=== PATIENT | female | born 1965 | race Caucasian/White ===

== ENCOUNTER 2016-10-16 10:45 | Observation (INO) | payer OTHER ==
[~2016-10-16] VITALS: Ht 175.3 cm; Wt 75.0 kg
[2016-10-16] MEDS: NITROGLYCERIN 0.4 MG SL 25 TABS/BTL SL SCH ×2 (01:43→11:15)
[~2016-10-16 10:45] MED LIST: CEPH500C3 PO; Z.0.NO CURRENT MEDS
[2016-10-16 10:48] VITALS: BP 217/103; PULSE 94; RESP 16; TEMP 97.9; O2SAT 98
[2016-10-16] MEDS ORDERED: SODIUM CHLORIDE 0.9% FLUSH 10 ML FLUSH IVF PRN (11:15)
[2016-10-16 11:35] VITALS: BP 166/94; PULSE 64; RESP 16; O2SAT 99
[2016-10-16 11:36] LABS: AUTOMATED NEUTROPHIL # 3.1 TH/MM3 (1.8-7.7); BASOPHIL # 0.1 TH/MM3 (0-0.2); EOSINOPHIL # 0.1 TH/MM3 (0-0.4); EOSINOPHIL % 1.5 % (0.0-4.0); HEMATOCRIT 36.8 % (35.0-46.0); HEMO FLAGS DIFF FINAL; LYMPH % 23.8 % (9.0-44.0); LYMPHOCYTE # 1.2 TH/MM3 (1.0-4.8); MEAN CELL VOLUME 94.6 FL (80.0-100.0); MEAN CORPUSCULAR HEMOGLOBIN 31.1 PG (27.0-34.0); MEAN CORPUSCULAR HGB CONC 32.9 % (32.0-36.0); MONO % 12.3 % (0.0-8.0); NEUT % 61.4 % (16.0-70.0); PLATELET COUNT 194 TH/MM3 (150-450); RED CELL DISTRIBUTION WIDTH 12.6 % (11.6-17.2); WHITE BLOOD COUNT 5.1 TH/MM3 (4.0-11.0)
[2016-10-16 11:56] LABS: ANION GAP 6 MEQ/L (5-15); BICARBONATE 26.9 MEQ/L (21.0-32.0); BLOOD UREA NITROGEN 14 MG/DL (7-18); CHLORIDE 102 MEQ/L (98-107); GLOMERULAR FILTRATION RATE 60 ML/MIN (>89); POTASSIUM 4.2 MEQ/L (3.5-5.1); SODIUM (NA) 135 MEQ/L (136-145)
[2016-10-16 12:00] LABS: APTT (PATIENT) 28.3 SEC (24.3-30.1); PROTHROMBIN TIME - PATIENT 11.1 SEC (9.8-11.6)
--- NOTE | 2016-10-16 12:00 | RADRPT ---
EXAM DATE/TIME: 10/16/2016 11:30 [place] COMPARISON: No previous studies available for comparison. INDICATIONS : Chest pain/tightness MEDICAL HISTORY : None. SURGICAL HISTORY : None. ENCOUNTER: Initial ACUITY: 1 day PAIN SCORE: 5/10 LOCATION: Bilateral chest FINDINGS: A single view of the chest demonstrates the lungs to be symmetrically aerated without evidence of mas s, infiltrate or effusion. The cardiomediastinal contours are unremarkable. Osseous structures are intact. CONCLUSION: No acute disease. Nickolas Askew MD FACR on October 16, 2016 at 11:58 Board Certified Radiologist. This report was verified electronically.
[2016-10-16 12:04] LABS: CREATINE KINASE 76 U/L (26-192)
--- NOTE | 2016-10-16 12:25 | PD ---
HPI Chief Complaint: Chest Pain Time Seen by Provider: 10:55 Travel History International Travel<30 days: No Contact w/Intl Traveler<30days: No Traveled to known affect area: No History of Present Illness HPI The patient's 51 years old. She arrives to the ER with a complaint of left upper extremity numbness and tingling. She also describes a tight sensation chest associated with dyspnea. Additionally she complains of left lower extremity numbness and tingling. She notes taking one aspirin hour ago. It has not made a difference. Onset at rest. She's had no cough or fever. She reports a racing heart sensation earlier today which has since resolved. She drinks alcohol occasionally. She does not smoke tobacco. She denies any past medical history. She takes no medication. No similar prior event has occurred. She reports some anxiety. She was planning going to the beach today. She contends that "just doesn't feel right all over." PFSH Past Medical History Blood Disorders: No Cancer: No Cardiovascular Problems: No Diminished Hearing: No Endocrine: No Genitourinary: No Musculoskeletal: Yes Neurologic: No Psychiatric: No Reproductive: No Respiratory: No Influenza Vaccination: Yes ?: Not Social History Alcohol Use: No Tobacco Use: No Substance Use: No Allergies-Medications (Allergen,Severity, Reaction): Coded Allergies: No Known Allergies (Verified , 06/14/10) Reported Meds & Prescriptions Reported Meds & Active Scripts Active Hydrochlorothiazide 25 Mg Tab 25 Mg PO HS Keflex (Cephalexin Monohydrate) 500 Mg Cap 1 Tab PO BID 5 Days Reported No Current Meds (Miscellaneous Medication) Misc Review of Systems Except as stated in HPI: all other systems reviewed are Neg Physical Exam Narrative GENERAL: 51-year-old female pleasant well-nourished well-developed SKIN: Focused skin assessment warm/dry. HEAD: Atraumatic. Normocephalic. EYES: Pupils equal and round. No scleral icterus. No injection or drainage. ENT: No nasal bleeding or discharge. Mucous membranes pink and moist. NECK: Trachea midline. No JVD. CARDIOVASCULAR: Regular rate and rhythm. No murmur appreciated. RESPIRATORY: No accessory muscle use. Clear to auscultation. Breath sounds equal bilaterally. GASTROINTESTINAL: Abdomen soft, non-tender, nondistended. Hepatic and splenic margins not palpable. MUSCULOSKELETAL: No obvious deformities. No clubbing. No cyanosis. No edema. NEUROLOGICAL: Awake and alert. No obvious cranial nerve deficits. Motor grossly within normal limits. Normal speech. PSYCHIATRIC: Appropriate mood and affect; insight and judgment normal. Data Data Last Documented VS Vital Signs Date Time Temp Pulse Resp B/P Pulse Ox O2 Delivery O2 Flow Rate FiO2 10/16/16 12:14 99 Room Air 10/16/16 11:35 64 16 166/94 10/16/16 10:48 97.9 Vital signs reviewed Orders Electrocardiogram (10/16/16 11:13) Basic Metabolic Panel (Bmp) (10/16/16 11:13) Ckmb (Isoenzyme) Profile (10/16/16 11:13) Complete Blood Count With Diff (10/16/16 11:13) D-Dimer (10/16/16 11:13) Magnesium (Mg) (10/16/16 11:13) Prothrombin Time / Inr (Pt) (10/16/16 11:13) Act Partial Throm Time (Ptt) (10/16/16 11:13) Troponin I (10/16/16 11:13) Chest, Single Ap (10/16/16 11:13) Ecg Monitoring (10/16/16 11:13) Bilateral Bp Monitoring (10/16/16 11:13) Iv Access Insert/Monitor (10/16/16 11:13) Oximetry (10/16/16 11:13) Oxygen Administration (10/16/16 11:13) Sodium Chloride 0.9% Flush (Ns Flush) (10/16/16 11:15) Nitroglycerin Sl (Nitrostat Sl) (10/16/16 11:15) Ed Urine Pregnancytest Poc (10/16/16 11:13) Place In Observation (10/16/16 12:38) Activity Bed Rest With Brp (10/16/16 12:38) Vital Signs (Adult) Q4H (10/16/16 12:38) Cardiac Rhythm .As Directed (10/16/16 12:38) Notify Dr: Other .PRN (10/16/16 12:38) Notify Dr. Parameters (10/16/16 12:38) Resp Oxygen Nasal Cannula (10/16/16 ) Ckmb (Isoenzyme) Profile (10/16/16 12:38) Ckmb (Isoenzyme) Profile (10/16/16 15:38) Troponin I (10/16/16 12:38) Troponin I (10/16/16 15:38) Electrocardiogram (10/16/16 12:38) Electrocardiogram (10/16/16 15:38) ^ Obtain (10/16/16 12:38) Morphine Inj (Morphine Inj) (10/16/16 12:45) Ondansetron Inj (Zofran Inj) (10/16/16 12:45) Nitroglycerin Sl (Nitrostat Sl) (10/16/16 12:45) Aspirin (Aspirin) (10/17/16 09:00) Temazepam (Restoril) (10/16/16 12:45) Alprazolam (Xanax) (10/16/16 12:45) Filament Cutter / Telemetry DONNA.Q8H (10/16/16 12:38) Admit Order (Ed Use Only) (10/16/16 13:03) Labs Laboratory Tests Test 10/16/16 11:20 White Blood Count 5.1 TH/MM3 Red Blood Count 3.90 MIL/MM3 Hemoglobin 12.1 GM/DL Hematocrit 36.8 % Mean Corpuscular Volume 94.6 FL Mean Corpuscular Hemoglobin 31.1 PG Mean Corpuscular Hemoglobin 32.9 % Concent Red Cell Distribution Width 12.6 % Platelet Count 194 TH/MM3 Mean Platelet Volume 8.3 FL Neutrophils (%) (Auto) 61.4 % Lymphocytes (%) (Auto) 23.8 % Monocytes (%) (Auto) 12.3 % Eosinophils (%) (Auto) 1.5 % Basophils (%) (Auto) 1.0 % Neutrophils # (Auto) 3.1 TH/MM3 Lymphocytes # (Auto) 1.2 TH/MM3 Monocytes # (Auto) 0.6 TH/MM3 Eosinophils # (Auto) 0.1 TH/MM3 Basophils # (Auto) 0.1 TH/MM3 CBC Comment DIFF FINAL Differential Comment Prothrombin Time 11.1 SEC Prothromb Time International 1.0 RATIO Ratio Activated Partial 28.3 SEC Thromboplast Time D-Dimer Quantitative (PE/DVT) 0.21 MG/L FEU Sodium Level 135 MEQ/L Potassium Level 4.2 MEQ/L Chloride Level 102 MEQ/L Carbon Dioxide Level 26.9 MEQ/L Anion Gap 6 MEQ/L Blood Urea Nitrogen 14 MG/DL Creatinine 0.98 MG/DL Estimat Glomerular Filtration 60 ML/MIN Rate Random Glucose 92 MG/DL Calcium Level 8.5 MG/DL Magnesium Level 2.0 MG/DL Total Creatine Kinase 76 U/L Troponin I LESS THAN 0.02 NG/ML MDM Medical Decision Making Medical Screen Exam Complete: Yes Emergency Medical Condition: Yes Medical Record Reviewed: Yes Differential Diagnosis NSTEMI, unstable angina, coronary vasospasm, PE, PTX, aortic dissection, pericarditis, myocarditis, endocarditis, PNA, esophageal disease, aneurysm, musculoskeletal etiologies, anxiety, cocaine/sympathomimetic abuse Narrative Course EKG reveals a sinus rhythm with a rate of 71, unifocal PVC Last Impressions Chest X-Ray 10/16/16 1113 Signed Impressions: Service Date/Time: Wednesday, October 16, 2016 11:30 - CONCLUSION: No acute disease. Nickolas Askew MD FACR CBC & BMP Diagram 10/16/16 11:20 Troponin less than 0.02 Patient reports near complete resolution of chest discomfort following nitroglycerin. Chest pain center protocol considered next most appropriate step. Diagnosis Primary Impression: LUE numbness Additional Impression: Chest tightness Referrals: Virgilio Strauss MD 2 days Additional Instructions: You have a choice when it comes to health care, and we are glad that you chose [facility]. Hopefully, we have met your expectations on today's visit. You are welcome to return to [facility] at any time, as we are committed to meeting the health care needs of our community. Med/Other Pt SpecificInfo: Prescription(s) given Scripts Hydrochlorothiazide 25 Mg Tab25 Mg PO HS #15 TAB Ref 0 Prov:Mehul Winkler MD 10/16/16 Disposition: 01 DISCHARGE HOME Condition: Stable Mehul Winkler MD Oct 16, 2016 12:25
[2016-10-16] MEDS ORDERED: HYDR25TA5 PO (12:28)
[2016-10-16] MEDS ORDERED: NITROGLYCERIN 0.4 MG SL 25 TABS/BTL SL PRN (12:45)
[2016-10-16] MEDS ORDERED: MORPHINE SULFATE 4 MG/ML INJ IV PRN (12:45)
[2016-10-16] MEDS ORDERED: ONDANSETRON HCL 4 MG/2 ML VIAL IV PRN (12:45)
[2016-10-16] MEDS ORDERED: TEMAZEPAM 15 MG CAP PO PRN (12:45)
[2016-10-16] MEDS ORDERED: ALPRAZolam 0.25 MG TAB PO PRN (12:45)
[2016-10-16 13:46] VITALS: BP 154/81; PULSE 65; RESP 16; O2SAT 99
[2016-10-16 14:14] VITALS: BP 188/85; PULSE 60; RESP 14; TEMP 97.2; O2SAT 96
[2016-10-16 14:24] VITALS: BP 160/82
--- NOTE | 2016-10-16 14:28 | EKG ---
Date Performed: 10/16/2016 Time Performed: 11:10:30 PTAGE: 51 years EKG: Sinus rhythm WITH OCCASIONAL ECTOPIC PREMATURE COMPLEXES POSSIBLE RIGHT VENTRICULAR CONDUCTION DELAY BORDERLINE E CG COMPARED TO PRIOR ELECTROCARDIOGRAM, Premature ectopic beats are present. PREVIOUS TRACING : 12/01/2007 09.04 DOCTOR: Emile Shabazz Interpretating Date/Time 10/16/2016 14:27:57
[2016-10-16 15:33] VITALS: PULSE 67
--- NOTE | 2016-10-16 15:38 | HHI.HP ---
[facility] Primary Care Physician Virgilio Strauss MD Chief Complaint Arm pain History of Present Illness This is a 51-year-old female that presents to the ED clouding of a tightness left upper chest and arm pain and numbness that began around 10:00 this morning. Lasted 2 hours. She states it began to feel better after getting sublingual nitroglycerin in the ED. No associated shortness breath, nausea, or diaphoresis. Patient states she's very active. She has done many half marathons. Her last one was about 2 weeks ago which she did okay with that was having problems with her foot. She had tendinitis of the foot but that is resolved. Denies recent illnesses. Denies fevers or chills. Review of Systems General: Patient denies fevers, chills recent, and recent travel HEENT: Patient denies headache, sore throat, difficulty swallowing. Cardiovascular: Has the chest discomfort as mentioned above. Denies sensation of heart beating rapidly or irregularly. No syncope. Denies diaphoresis. Respiratory: Denies shortness of breath or inspirational chest discomfort. Denies coughing wheezing or hemoptysis. GI: Patient denies nausea, vomiting, diarrhea, abdominal pain, bloody stools. Musculoskeletal: Left arm/tingling/numbness in left arm. Denies calf pain or edema. Neurovascular: Complained of a numbing/tingling sensation left arm. Patient denies weakness in extremities. Denies headache. Endocrine: Denies polyuria and polydipsia. Hematologic: Denies easy bruising. Skin: Denies rash or itching. Past Family Social History Allergies: Coded Allergies: No Known Allergies (Verified , 06/14/10) Past Medical History Denies hypertension, hyperlipidemia, diabetes, CAD. Past Surgical History Noncontributory. Reported Medications Reported Meds & Active Scripts Active Hydrochlorothiazide 25 Mg Tab 25 Mg PO HS Keflex (Cephalexin Monohydrate) 500 Mg Cap 1 Tab PO BID 5 Days Reported No Current Meds (Miscellaneous Medication) Misc Active Ordered Medications Current Medications Medications (Trade) Dose Ordered Sig/Nghia Route Start Time Stop Time Status Last Admin (NS Flush) 2 ml UNSCH PRN IVF 10/16/16 11:15 (Morphine Inj) 2 mg Q4H PRN IV 10/16/16 12:45 (Zofran Inj) 4 mg Q6H PRN IV 10/16/16 12:45 (Nitrostat Sl) 0.4 mg Q5M PRN SL 10/16/16 12:45 (Aspirin) 325 mg DAILY PO 10/17/16 09:00 (Restoril) 15 mg HS PRN PO 10/16/16 12:45 (Xanax) 0.25 mg Q8H PRN PO 10/16/16 12:45 Family History Denies family history of CAD. Social History Patient is a lifetime nonsmoker. Denies alcohol or illicit drugs. Physical Exam Vital Signs Vital Signs Date Time Temp Pulse Resp B/P Pulse Ox O2 Delivery O2 Flow Rate FiO2 10/16/16 14:24 160/82 10/16/16 14:14 97.2 60 14 188/85 96 10/16/16 13:46 65 16 154/81 99 10/16/16 12:14 99 Room Air 10/16/16 12:14 99 10/16/16 11:35 64 16 166/94 99 Room Air 10/16/16 10:48 97.9 94 16 217/103 98 Physical Exam GENERAL: This is a well-nourished, well-developed patient, in no apparent distress. Patient speaks in clear complete sentences. Patient is pleasant. HEENT: Head is atraumatic and normocephalic. Neck is supple without lymphadenopathy and trachea is midline. No JVD or carotid bruits. CARDIOVASCULAR: Regular rate and rhythm without murmurs, gallops, or rubs. RESPIRATORY: Clear to auscultation. Breath sounds equal bilaterally. No wheezes , rales, or rhonchi. Chest wall is nontender. No use of accessory muscles. GASTROINTESTINAL: Abdomen is nontender, nondistended. Abdomen soft. No obvious pulsatile mass or bruit. No CVA tenderness. Strong femoral pulses bilaterally. Normal bowel sounds in all quadrants. MUSCULOSKELETAL: Patient is moving upper and lower extremities freely. No calf tenderness or edema, no Homans sign. Strong pulses in upper and lower extremities. NEUROLOGICAL: Patient is alert and oriented. Cranial nerves 2-12 are grossly intact. No focal deficits and speech is clear. SKIN: No rash and turgor is normal. Laboratory Laboratory Tests Test 10/16/16 11:20 White Blood Count 5.1 Red Blood Count 3.90 Hemoglobin 12.1 Hematocrit 36.8 Mean Corpuscular Volume 94.6 Mean Corpuscular Hemoglobin 31.1 Mean Corpuscular Hemoglobin 32.9 Concent Red Cell Distribution Width 12.6 Platelet Count 194 Mean Platelet Volume 8.3 Neutrophils (%) (Auto) 61.4 Lymphocytes (%) (Auto) 23.8 Monocytes (%) (Auto) 12.3 Eosinophils (%) (Auto) 1.5 Basophils (%) (Auto) 1.0 Neutrophils # (Auto) 3.1 Lymphocytes # (Auto) 1.2 Monocytes # (Auto) 0.6 Eosinophils # (Auto) 0.1 Basophils # (Auto) 0.1 CBC Comment DIFF FINAL Differential Comment Prothrombin Time 11.1 Prothromb Time International 1.0 Ratio Activated Partial 28.3 Thromboplast Time D-Dimer Quantitative (PE/DVT) 0.21 Sodium Level 135 Potassium Level 4.2 Chloride Level 102 Carbon Dioxide Level 26.9 Anion Gap 6 Blood Urea Nitrogen 14 Creatinine 0.98 Estimat Glomerular Filtration 60 Rate Random Glucose 92 Calcium Level 8.5 Magnesium Level 2.0 Total Creatine Kinase 76 Troponin I LESS THAN 0.02 Result Diagram: 10/16/16 1120 10/16/16 1120 Imaging Last 48 hours Impressions Chest X-Ray 10/16/16 1113 Signed Impressions: Service Date/Time: Sunday, October 16, 2016 11:30 - CONCLUSION: No acute disease. Nickolas Askew MD FACR Course Initial EKG is sinus rhythm without significant ST segment depressions or elevations. Assessment and Plan Assessment and Plan * Chest pain: Patient has had first set of cardiac enzymes and EKGs. She has been seen by Dr. Shiraz Nam of cardiology in the chest pain center. She will undergo a Eric protocol ETT and be discharged at the stress test is nonischemic. Patient is stable this time. She is agreeable to this plan. Costa Tilley Oct 16, 2016 15:37
[2016-10-16 15:47] LABS: CREATINE KINASE 63 U/L (26-192)
--- NOTE | 2016-10-16 16:51 | HHI.DCPOC ---
Discharge Care Plan Diagnosis: (1) Chest pain Goals to Promote Your Health * To prevent worsening of your condition and complications * To maintain your health at the optimal level Directions to Meet Your Goals Take your medications as prescribed Follow your dietary instruction Follow activity as directed Keep your appointments as scheduled Take your immunizations and boosters as scheduled If your symptoms worsen call your PCP, if no PCP go to Urgent Care Center or Emergency Room Smoking is Dangerous to Your Health. Avoid second hand smoke Call the 24-hour hour crisis hotline for domestic abuse at Costa Tilley Oct 16, 2016 16:51
[2016-10-17] MEDS ORDERED: ASPIRIN 325 MG TAB PO SCH (09:00)
--- NOTE | 2016-10-21 07:35 | EKG ---
Date Performed: 10/16/2016 Time Performed: 14:31:28 PTAGE: 51 years EKG: Sinus rhythm POSSIBLE RIGHT VENTRICULAR CONDUCTION DELAY BORDERLINE ECG PREVIOUS TRACINSince PREVIOUS TRACING , no significant change noted DOCTOR: Shiraz Nam Interpretating Date/Time 10/21/2016 07:31:50
--- NOTE | 2016-10-21 07:39 | TR ---
Date Performed: 10/16/2016 Time Performed: 15:50:49 DOCTOR: Shiraz Nam DRUG LIST: CLINICAL HISTORY: REASON FOR TEST: Chest pain REASON FOR ENDING: OBSERVATION: CONCLUSION: DIONICIO PROTOCOL. NO CP. PT WAS SOB.Maximum VJ=181 % Max HR Bqdufsbx=708.0% Resting BP =148/84 Maximum HB=437/118 Total Exercise Time=8:54 COMMENTS: Patient exercised using the Dionicio protocol. No electrocardiographic changes were seen to suggest ischemia. Hemodynamic response to exercise was normal. No significant arrhythmia was prese nt.
== END 2016-10-16 17:47 | disposition home or self-care (01) ==
LOC: NEPC 10:45 → NEDA 13:04 → NEPHCDU 15:35
PROVIDERS: ADMIT Internal Medicine Cardiovascular Disease; ATTEND Internal Medicine Cardiovascular Disease
DX: R07.89 Other chest pain (principal); M79.603 Pain in arm, unspecified; R20.0 Anesthesia of skin; R06.00 Dyspnea, unspecified; R20.2 Paresthesia of skin; F41.9 Anxiety disorder, unspecified; I49.3 Ventricular premature depolarization; I49.49 Other premature depolarization; Z79.899 Other long term (current) drug therapy
CPT/HCPCS: 71010; 80048; 82550; 83735; 84484; 85025; 85379; 85610; 85730; 93005; 93017; 99285; G0378